=== PATIENT | male | born 1945 | race Caucasian/White ===

== ENCOUNTER 2017-01-15 07:06 | Observation (INO) ==
[2017-01-15] MEDS ORDERED: MORPHINE 2 MG/1 ML SYRINGE IV PRN (07:25)
[2017-01-15] MEDS ORDERED: ONDANSETRON 4 MG/2 ML VIAL IV PRN (07:25)
[2017-01-15] MEDS ORDERED: ASPIRIN 325 MG TABLET PO STA (07:25)
--- NOTE | 2017-01-15 07:28 | EKG Report ---
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
[2017-01-15 07:36] LABS: Basophils % 0.5 % (0.0-0.8); Eosinophils # 0.2 10*3/uL (0.0-0.87); Eosinophils % 2.6 % (0.00-10.9); Hematocrit 44.7 VOL% (42.0-52.0); Hemoglobin 15.1 GM/DL (14.0-18.0); Immature Granulocytes % 0.3 %; Immature Granulocytes Absolute 0.02 #; Lymphocytes # 1.3 10*3/uL (1.4-4.0); Lymphocytes % 20.3 % (21.2-54.2); Mean Corpuscular HGB Conc 33.8 GM/DL (32-36); Mean Corpuscular Hemoglobin 30 PG (27-34); Mean Corpuscular Volume 90.1 FL (87-102); Mean Platelet Volume 9.3 FL (9.6-12.0); Monocytes # 0.5 10*3/uL (0.11-0.8); Monocytes % 7.6 % (1.7-12.7); Neutrophils # 4.5 10*3/uL (1.4-7.4); Neutrophils % 68.7 % (38.7-73.9); Platelet Count 239 T/CUMM (130-400); Red Blood Count 4.96 MC/CUMM (3.8-5.5); White Blood Count 6.6 T/CUMM (4-12)
[2017-01-15] MEDS ORDERED: ENOXAPARIN 80 MG/0.8 ML SYRINGE SUBCUT STA (07:44)
[2017-01-15 07:45] LABS: PT Patient Result 10.6 SECS; Partial Thromboplastin Time 27.9 SECS (0-40)
[2017-01-15] MEDS ORDERED: ONDANSETRON 4 MG/2 ML VIAL ONE (07:45)
[2017-01-15] MEDS ORDERED: NITROGLYCERIN 2% OINT 1 INCH/GM PACK TOP STA (07:45)
[2017-01-15] MEDS ORDERED: ASPIRIN 325 MG TABLET ONE (07:46)
[2017-01-15] MEDS ORDERED: MORPHINE 2 MG/1 ML SYRINGE ONE (07:46)
--- NOTE | 2017-01-15 07:46 | XRay Report ---
XR chest 2V Indication: Chest pain. Comparison: Chest x-ray 04/05/2015 Technique: PA and lateral chest x-ray was performed. Findings: Heart size, mediastinal contour, and hilar structures demonstrate no significant abnormalities. The lung parenchyma is clear. Bones and soft tissues demonstrate no significant abnormalities. Impression: 1. No active cardiopulmonary disease. 01/15/2017 7:43 AM PROCEDURE INTERPRETED AT [facility] DEPARTMENT OF RADIOLOGY Final Report Signed by: Dr. Jacobo López
[2017-01-15] MEDS ORDERED: NITROGLYCERIN 2% OINT 1 INCH/GM PACK TOP ONE (07:51)
[2017-01-15] MEDS ORDERED: ENOXAPARIN 80 MG/0.8 ML SYRINGE SUBCUT ONE (07:52)
--- NOTE | 2017-01-15 07:55 | Emergency Department Note ---
Marisa Souza Mantricia, am scribing for, and in the presence of, Giancarlo Suarez MD 07:50. Daniela Souza James D, MD, personally performed the services described in this documentation, ascribed by Cipriano Cunningham in my presence, and it is both accurate and complete 754 . Arrival - Arrival Chief Complaint: Chest Pain Stated Complaint: chest pain ED Nursing Triage Note: PT C/O MIDSTERNAL CHEST PAIN THAT RADIATES ACROSS SHOULDER BLADES AND TO LEFT ARM. ONSET X4 DAYS. Mode of Arrival: Ambulatory Limitations: No Limitations Source: Patient, RN Notes Reviewed Time Seen by Provider: 01/15/17 07:25 - History of Present Illness HPI Narrative: Pt is a 71 y/o white male arriving to ED that onset 4 days ago. Pt states that he is experiencing tightness on the left side of his chest that radiates down his arm and along his shoulder blade. He reports that relaxing worsens his chest tightness and does not notice anything that relieves it. Pt has a PMHx of CAd and a PSHx of a angioplasty in April 2016. He confirms slight SOB and nausea but denies V/D. Pt states that he smokes at least 6-7 cigarettes a day. He reports no other complaints to ED. Onset (ago): day(s) Allergies/Adverse Reactions: Allergies Allergy/AdvReac Type Severity Reaction Status Date / Time Sulfa (Sulfonamide AdvReac Headache Verified 01/15/17 07:13 Antibiotics) Home Medications: Home Medications Medication Instructions Recorded Confirmed Type Aspirin [Ecotrin] 81 mg PO DAILY 04/03/15 04/05/15 History Dutasteride [Avodart] 0.5 mg PO QOTHER DAY 04/03/15 04/05/15 History Atorvastatin [Lipitor] 80 mg PO BEDTIME #30 tablet 04/04/15 04/05/15 Rx Esomeprazole Magnesium [Nexium] 40 mg PO AC BREAKFAST #30 04/04/15 04/05/15 Rx capsule. Ticagrelor [Brilinta] 90 mg PO BID #60 tablet 04/04/15 04/05/15 Rx Review of System - Review of System 12 point system: reviewed and no additional remarkable complaints except as stated - Review of System Constitutional: Absent: chills, diaphoresis, fever Eyes: Absent: discharge, pain Head/Ears/Nose/Throat: Absent: earache, epistaxis Respiratory: Absent: cough, respiratory distress, wheezing Cardiovascular: Present: chest pain Gastrointestinal: Absent: abdominal pain, nausea, vomiting Genitourinary male: Absent: urgency, dysuria Musculoskeletal: Present: arm pain, back pain (shoulder blade). Absent: leg pain, neck pain Skin: Absent: rash, lesions Neurological: Absent: headache, weakness Medical,Surgical,& Family Hx - Medical History Cardio: History of: CAD, [place] Endocrine: History of: Dyslipidemia Respiratory: History of: COPD (was told had some emphysema) Genitourinary: History of: Prostate Problems Gastrointestinal: History of: Ulcerative Colitis Other: No history of: Anesthesia Reactions - Surgical History Cardiac Surgeries: Sugical HX of: Cardiac Catheterization (ANGIOPLAST) HEENT Surgeries: Surgical HX of: Tonsilectomy & Adenoidectomy (tonsilectomy at age 5) Abdominal Surgeries: Surgical HX of: Colonoscopy, Hernia Repair (inguinal) - Family History Family History: Denies;: Family Anesthesia Reaction, Family Cancer, Family Diabetes, Family Heart Disease, Family Hypertension, Family Psychiatric Problems, Family Stroke - Social History Smoking Status: Former smoker Frequency of Alcohol Use: None Type of Drug Use: None Exam Vital Signs: Vital Signs Temperature 97.6 F 01/15/17 07:25 Pulse Rate 88 01/15/17 07:25 Respiratory Rate 20 01/15/17 07:25 Blood Pressure 130/75 01/15/17 07:25 O2 Sat by Pulse Oximetry 97 01/15/17 07:21 - General General appearance: alert, in no apparent distress - Head Head exam: Present: atraumatic, normocephalic, normal inspection - Eye Eye exam: Present: normal appearance, PERRL, EOMI - ENT ENT exam: Present: normal exam, normal oropharynx, mucous membranes moist, TM's normal bilaterally, normal external ear exam - Neck Neck exam: Present: normal inspection, full ROM, trachea midline. Absent: tenderness - Chest Chest inspection: Present: normal inspection, symmetric chest wall rise. Absent : tenderness - Respiratory Respiratory exam: Present: normal lung sounds bilaterally - Cardiovascular Cardiovascular exam: Present: regular rate, normal rhythm, normal heart sounds - Abdominal Exam Abdominal exam: Present: soft, normal bowel sounds. Absent: distention, tenderness, guarding, rebound - Extremities Exam Extremities exam: Present: normal inspection, full ROM, normal capillary refill. Absent: tenderness, pedal edema - Back Exam Back exam: Present: normal inspection, full ROM. Absent: tenderness - Neurological Exam Neurological exam: Present: alert, oriented X3, CN II-XII intact, normal gait, reflexes normal - Psychiatric Psychiatric exam: Present: normal affect, normal mood - Skin Skin exam: Present: warm, dry, intact, normal color Course - Consultations Consultation #1: Patient will be seen by Dr. Khoury in the emergency department. Time: 08:38 Results - Labs CBC & BMP: 01/15/17 07:25 01/15/17 07:25 Lab Results: I have reviewed the patients labs Labs: Laboratory Tests 01/15/17 07:25 Troponin I < 0.015 - EKG EKG results: interpreted by ERMD - Impressions EKG: Normal sinus rhythm with rate of 91, nonspecific ST-T wave changes, normal axis. - Diagnostic Findings Procedure: Chest x-ray: image reviewed by me (No cardiomegaly, no pleural effusions, no infiltrates.) Disposition Clinical Impression: Chest pain, Coronary artery disease Case discussed with: patient Disposition: Still a Patient Condition: Guarded
[2017-01-15 08:13] LABS: Bilirubin,Total 0.6 MG/DL (0.2-1.0); Calcium 9.3 MG/DL (8.5-10.1); Osmolality,Calculated 279.4 MOS/KG (273-304); Potassium 4.2 MMOL/L (3.5-5.1); Total Protein 7.9 G/DL (6.4-8.3)
[2017-01-15] MEDS ORDERED: SODIUM CHLORIDE 0.45% 1,000 ML IV SCH (09:00)
[2017-01-15] MEDS ORDERED: DIAZEPAM 5 MG TABLET PO ONE (09:00)
[2017-01-15] MEDS ORDERED: diphenhydrAMINE CAP 25 MG CAPSULE PO ONE (09:00)
--- NOTE | 2017-01-15 09:05 | Cardiology History & Physical ---
Assessment and Plan - Time spent with patient Time spent with patient: Greater than 30 minutes (Exam, film review, chart review documentation and orders and discussion with consulting physician) (1) Chest pain Status: Acute Assessment and plan: This is a subacute chest discomfort that is similar to his previous pain he is very anxious about this has known coronary disease. Is on dual antiplatelet therapy will continue that anticipate left heart catheterization later today by Dr. Isabel. Patient understands willing to proceed he has been n.p.o. since last night. Current Visit: Yes (2) Coronary artery disease Status: Acute Current Visit: Yes Qualifiers: Coronary Disease-Associated Artery/Lesion type: torres martinez artery [place] vs. transplanted heart: torres martinez heart Associated angina: with unspecified angina Qualified Code(s): I25.119 - Atherosclerotic heart disease of torres martinez coronary artery with unspecified angina pectoris (3) Dyslipidemia Status: Acute Current Visit: No (4) Abdominal aortic aneurysm Status: Chronic Current Visit: No Qualifiers: Presence of rupture: without rupture Qualified Code(s): I71.4 - Abdominal aortic aneurysm, without rupture History of Present Illness Chief complaint: Chest pain shoulder pain History of present illness: Mr. Campos is a 71 year old male with history of known coronary artery disease who presents with approximately 5 days duration of chest discomfort and left shoulder discomfort. 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 He is not sure if it is better or worse with exercise or exertion but he states that he has had some diaphoresis and some intermittent nausea. He states the nausea was not bad but it was "like I was going to get nauseated." Patient presented for further evaluation emergency room he has a nondiagnostic EKG with no diagnostic ST segment changes and negative cardiac biomarkers. He has had previous PCI the last approximately 2 years ago. He is followed longitudinally outpatient setting by Dr. Maxx Isabel. I discussed with the patient his benefits options and decision was made to proceed with left heart catheterization because of known coronary artery disease. I reviewed his films from 04/03/2015 he had PCI 100% occluded nondominant right coronary artery. He had diffuse mild to moderate disease in a dominant left system particular the circumflex system but certainly could have progressed. I discussed with the patient he is willing to proceed. Dr. Isabel is in the [facility] this afternoon we will cath this afternoon I discussed with Dr. Isabel. Home Medications Medication Instructions Recorded Confirmed Type Aspirin [Ecotrin] 81 mg PO DAILY 04/03/15 04/05/15 History Dutasteride [Avodart] 0.5 mg PO QOTHER DAY 04/03/15 04/05/15 History Atorvastatin [Lipitor] 80 mg PO BEDTIME #30 tablet 04/04/15 04/05/15 Rx Esomeprazole Magnesium [Nexium] 40 mg PO AC BREAKFAST #30 04/04/15 04/05/15 Rx capsule. Ticagrelor [Brilinta] 90 mg PO BID #60 tablet 04/04/15 04/05/15 Rx Allergies Allergy/AdvReac Type Severity Reaction Status Date / Time Sulfa (Sulfonamide AdvReac Headache Verified 01/15/17 07:13 Antibiotics) - Constitutional Constitutional: Absent: anorexia, chills - EENT Eyes: Absent: loss of vision Nose, mouth and throat: Absent: dysphagia, epistaxis - Cardiovascular Cardiovascular: Present: chest pain at rest, chest pain with activity, dyspnea. Absent: dyspnea on exertion - Respiratory Respiratory: Absent: cough, dyspnea on exertion - Gastrointestinal Gastrointestinal: Absent: abdominal pain, bloating - Genitourinary Genitourinary: Absent: difficulty urinating, hematuria - Musculoskeletal Musculoskeletal: Absent: arthralgias - Neurological Neurological: Absent: disequilibrium, dizziness - Psychiatric Psychiatric: Present: anxiety. Absent: auditory hallucinations, depression - Endocrine Endocrine: Absent: cold intolerance, heat intolerance - Hematologic/Lymphatic Hematologic/Lymphatic: Present: easy bruising. Absent: easy bleeding Medical,Surgical,& Family Hx - Medical History Cardio: History of: CAD (POB a RCA 2014), [place] Endocrine: History of: Dyslipidemia Respiratory: History of: COPD (was told had some emphysema) Genitourinary: History of: Prostate Problems Gastrointestinal: History of: Ulcerative Colitis Other: History of: Miscellaneous Medical Problems (Dyslipidemia) No history of: Anesthesia Reactions - Surgical History Cardiac Surgeries: Sugical HX of: Cardiac Catheterization (ANGIOPLAST) HEENT Surgeries: Surgical HX of: Tonsilectomy & Adenoidectomy (tonsilectomy at age 5) Abdominal Surgeries: Surgical HX of: Colonoscopy, Hernia Repair (inguinal) - Family History Family History: Denies;: Family Anesthesia Reaction, Family Cancer, Family Diabetes, Family Heart Disease, Family Hypertension, Family Psychiatric Problems, Family Stroke - Social History Smoking Status: Former smoker Frequency of Alcohol Use: None Type of Drug Use: None Marital Status: Lives With:: Spouse Functional capacity: independent ambulation Cardiology Physical Exam - Constitutional Vitals: Vital Signs Temp Pulse Resp BP Pulse Ox 97.6 F 88 20 130/75 97 01/15/17 07:25 01/15/17 07:25 01/15/17 07:25 01/15/17 07:25 01/15/17 07:21 Intake and Output 01/14/17 01/15/17 01/15/17 23:59 07:59 15:59 Other: Weight 78.471 kg Patient Weight 01/15/17 23:59 Weight 78.471 kg General appearance: normal weight - Head Head exam: Present: normal inspection - Eye Eye exam: Present: EOMI Pupils: Present: IRINA - ENT ENT exam: Present: normal exam - Neck Neck exam: Present: normal inspection - Respiratory Respiratory exam: Present: clear to auscultation bilaterally - Cardiovascular Cardiovascular exam: Present: regular rate and rhythm - GI/Abdominal GI/Abdominal exam: Present: normal bowel sounds - Extremities Exam Extremities exam: Present: normal inspection - Back Exam Back exam: Present: normal inspection - Neurological Exam Neurological exam: Present: alert, oriented X3 - Psychiatric Psychiatric exam: Present: normal affect - Skin Skin exam: Present: normal color Result/EKG - Labs CBC & BMP: 01/15/17 07:25 01/15/17 07:25 Labs: Laboratory Results - last 24 hr 01/15/17 01/15/17 01/15/17 07:25 07:25 07:25 WBC 6.6 RBC 4.96 Hgb 15.1 Hct 44.7 MCV 90.1 MCH 30 MCHC 33.8 RDW 14.0 Plt Count 239 MPV 9.3 L Neut % (Auto) 68.7 Lymph % (Auto) 20.3 L [place] % (Auto) 7.6 Eos % (Auto) 2.6 Baso % (Auto) 0.5 Neut # (Auto) 4.5 Lymph # (Auto) 1.3 L [place] # (Auto) 0.5 Eos # (Auto) 0.2 Baso # (Auto) 0.0 Immature Gran % 0.3 Nucleated RBC % 0.0 Immature Gran # 0.02 Nucleated RBCs # 0.00 INR 1.0 PT Patient/Control Mix 10.6 Circ Anticoag PTT 27.9 Sodium 140 Potassium 4.2 Chloride 105 Carbon Dioxide 27 Anion Gap 12.2 BUN 14 Creatinine 1.00 GFR Calculation 86 BUN/Creatinine Ratio 14.00 Glucose 107 H Calculated Osmolality 279.4 Calcium 9.3 Total Bilirubin 0.60 AST 27 ALT 29 Alkaline Phosphatase 107 Troponin I Total Protein 7.9 Albumin 4.0 Globulin 3.9 H Albumin/Globulin Ratio 1.0 L 01/15/17 07:25 WBC RBC Hgb Hct MCV MCH MCHC RDW Plt Count MPV Neut % (Auto) Lymph % (Auto) [place] % (Auto) Eos % (Auto) Baso % (Auto) Neut # (Auto) Lymph # (Auto) [place] # (Auto) Eos # (Auto) Baso # (Auto) Immature Gran % Nucleated RBC % Immature Gran # Nucleated RBCs # INR PT Patient/Control Mix Circ Anticoag PTT Sodium Potassium Chloride Carbon Dioxide Anion Gap BUN Creatinine GFR Calculation BUN/Creatinine Ratio Glucose Calculated Osmolality Calcium Total Bilirubin AST ALT Alkaline Phosphatase Troponin I < 0.015 Total Protein Albumin Globulin Albumin/Globulin Ratio - EKG EKG results: interpreted by me (Normal sinus rhythm with incomplete right bundle branch block otherwise normal)
[2017-01-15] MEDS ORDERED: diphenhydrAMINE CAP 50 MG CAPSULE PO SCH (11:00)
[2017-01-15] MEDS ORDERED: DIAZEPAM 5 MG TABLET PO SCH (11:00)
--- NOTE | 2017-01-15 12:30 | EKG Report ---
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
--- NOTE | 2017-01-15 13:36 | EKG Report ---
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
[2017-01-15] MEDS ORDERED: LIDOCAINE 1%/EPI INJ 20 ML VIAL ONE (14:26)
[2017-01-15] MEDS ORDERED: HEPARIN/NACL 0.9% 2 UNITS/ML 1,000 ML IV ONE (14:26)
[2017-01-15] MEDS ORDERED: fentaNYL 100 MCG/2 ML VIAL ONE (14:40)
[2017-01-15] MEDS ORDERED: MIDAZOLAM 2 MG/2 ML VIAL ONE (14:40)
[2017-01-15] MEDS ORDERED: VERAPAMIL 5 MG/2 ML VIAL ONE (14:45)
[2017-01-15] MEDS ORDERED: NITROGLYCERIN DRIP 50 MG/250 ML BOTTLE IV ONE (14:45)
--- NOTE | 2017-01-15 15:03 | History and Physical Update ---
Sedation H&P Update - History and Physical H&P was reviewed, the patient examined and there: are no changes in the patients condition since last H&P was completed. - Sedation Plan for Sedation: moderate Patient Consent: Procedure disscussed with patient and patinet has consented., Risks and benefits were discussed with patient,including infection,, bleeding, injury to surrounding structures, seizure, temporary nerve, Patient understands and accepts potential risks/benefits and agrees to, proceed. ASA Class: III Airway Assessment: Class III: Soft palate, base of uvula visible
--- NOTE | 2017-01-15 15:39 | Cardiac Catheterization ---
Date of Procedure:: 01/15/17 Pre-op Diagnosis: Known CAD with precordial pain. History of PCI of the RCA done several years ago. Post-op diagnosis: same Procedure: Procedures performed: 1: Left heart catheterization 2: Coronary arteriography 3: Left ventriculography After obtaining informed consent the patient was brought to the cardiac catheterization lab where the right wrist was prepped and draped in the usual sterile fashion. Using intravenous sedation and local anesthesia a needle was inserted into the right radial artery and a guidewire was positioned without difficulty. A 5 Micronesian sheath was advanced over the guidewire and positioned in the right radial artery without difficulty. Patient was given verapamil and nitroglycerin intra-arterial as a vasodilator. At this point a Toni catheter was advanced over a guidewire under fluoroscopic control to the ascending aorta where the left main coronary ostium was engaged and multiple angiograms were obtained in multiple angulations. Next this catheter was manipulated into the right coronary artery and multiple angiograms of the right coronary artery was undertaken in multiple views. After adequate angiograms the right coronary were obtained this catheter was withdrawn and a pigtail ventriculographic catheter was advanced over guidewire under fluoroscopic control the ascending aorta where was passed across the aortic valve and intraventricular hemodynamics were measured. In the MCBRIDE projection, a ventriculogram was obtained injecting 24 cc of contrast at 12 cc/s. After adequate ventriculography was obtained this catheter was pulled back from the ventricle to the aorta under hemodynamic monitoring and removed. Patient then underwent T R band application 2 mm above the radial skin entry site. 15 mL of air was in injected into the hemo band and the radial sheath was pulled. Air was removed from the TR band and 1 mL intervals until a arterial flash was noted. Additional 2 mL of air were added back to the TR band at this point. The patient tolerated procedure well. His right hand was warm with good capillary fill noted. Patient was transferred to the holding area having suffered no significant immediate complications. Hemodynamics: Please see accompanying data sheet Coronary angiography: Left coronary artery: Left main coronary artery is well-developed and free of significant obstructing lesions. The circumflex coronary artery is a large dominant vessel that possesses no significant lesions throughout its course. The branches of the circumflex likewise are free of significant obstructing lesions. The left anterior descending coronary artery is a very large vessel that extends to the apex of the ventricle. He has some minor diffuse irregularities throughout its mid portion measuring probably 20-30% maximal luminal diameter narrowing. Right coronary artery: Right coronary arteries a small non-dominant vessel that possesses no significant lesions throughout its course. The branches of the right coronary artery are likewise free of significant obstructing lesions. Left ventriculography: After injection of contrast in the left ventricle is noted be of normal size with normal contractility. Mitral and aortic structures appear normal by ventriculography. Conclusions: 1: Minor luminal irregularities of the proximal LAD for continued risk factor modification medical management. 2: Prior PCI site of the nondominant right appears to be widely patent 3: Normal left ventricular systolic function and ejection fraction in the 55% range 4: Normal end-diastolic pressures at rest. Discussion and recommendations: Patient presents with left shoulder and subscapular pain which given the current coronary angiography is likely related to musculoskeletal pain. He may benefit from some pain medications and muscle relaxers. We will continue risk factor modification and continue medical therapy. Findings have been reviewed with the patient and with his family. Surgeon / Physician: Hans Isabel - Medications / Follow-up
--- NOTE | 2017-01-15 16:11 | Discharge Summary ---
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 Isabel Mr. Campos is a 71 year old male with a known history of coronary artery disease who presented today with approximately 5 days duration of chest discomfort and left shoulder discomfort. He had a nondiagnostic EKG with no diagnostic ST segment changes and negative cardiac biomarkers. He has had previous PCI the last approximately 2 years ago. It was elected to proceed with left heart catheterization today due to known coronary artery disease. He underwent left heart catheterization by Dr. Isabel this afternoon and was found to have minor luminal irregularities of the proximal LAd for continued risk factor modification and medical management. He was found to have an EF of 55%. His symptoms may be related to musculoskeletal pain. He may benefit form some pain medications and muscle relaxers. He will be given a hand written prescription for Ultram at discharge. His right wrist is without bleeding, hematoma, or bruit. Radial pulse is 2+. Dressing dry and intact. He has been in sinus rhythm with well controlled rate. Blood pressure has been well controlled. We will continue his home medications and have him follow up with Dr. Isabel in 2 weeks. His TR band will come off at 1800. If he meets discharge criteria, he will be discharged this evening. - Time spent with patient Time with patient DS: Less than 30 minutes Diagnosis - Discharge Diagnosis (1) Chest pain Status: Acute (2) Coronary artery disease Status: Chronic (3) Dyslipidemia Status: Chronic (4) Abdominal aortic aneurysm Status: Chronic Specialty Discharge - Follow Up or Referrals Follow up with: Hans Isabel MD [Physician] - 2 Weeks (Follow up with Dr. Isabel in 2 weeks. ) Discharge Plan - Discharge Data Disposition: Disch To Home/Self Care Condition at Discharge: Stable Discharge Diet: heart healthy Activity: no lifting (over 5 pounds x5 days) Hygiene: may shower (Do not submerge cath site beneath water. ) Weight Bearing at Discharge: full weight bearing Driving: not for (2 days) Contact your physician if you experience:: fever over 101, Difficulty voiding, Redness or swelling, Nausea/Vomiting, Shortness of breath, Bleeding, pain uncontrolled by pain medications - Discharge Medications Continue Aspirin [Ecotrin] 81 mg PO QPM Finasteride 5 mg PO QAM Atorvastatin [Lipitor] 20 mg PO QOTHER DAY Ibuprofen 800 mg PO Q6H PRN PRN Reason: hip pain - Follow Up or Referral Follow Up: Hans Isabel MD [Physician] - 2 Weeks (Follow up with Dr. Isabel in 2 weeks. ) - Forms/Instructions Exam - Constitutional Vitals: Period Temp Pulse Resp BP Sys/Díaz Pulse Ox Last 24 Hr 96.7 F-97.9 F 59-103 16-20 94-143/58-90 93-99 Exam: General: Present: Appears Well, No Apparent Distress. Pleasant and cooperative. Appears comfortable. HEENT: Present: PERRL, Normocephaly, atraumatic. Mucus Membranes Moist. No jaundice noted. Conjunctiva moist and clear, sclerae anicteric Neck: Present: Supple Neck, Midline Trachea, No Masses, No Bruit, No tenderness Cardiac: Present: Regular Rate and Rhythm, No Murmur Lungs: Present: Clear to auscultation bilaterally, no wheeze, rhonchi, rales. Neuro: Present: Awake, alert, and oriented x3. Moves all extremities well without hemiparesis or paralysis. Grossly Intact. Absent: Resting Tremor, Essential Tremor Abdomen: Present: Soft, Active Bowel Sounds, No Masses, Non-Tender, nondistended. No abdominal bruit or thrill noted. Skin: Present: Clear. Absent: Rash, No skin breakdown. Back: Normal inspection, no vertebral tenderness. Musculoskeletal: Present: No Fluid Collection, No Pain, Normal Range of Motion Extremities: Present: Normal Gait, No Clubbing, No Cyanosis, Upper Extr. Pulses 2+, Lower Extr. Pulses 2+, No edema. Capillary refill less than 3 seconds. Right radial cath site: No bleeding, hematoma, or bruit. Right radial pulse 2+. Discharge Results Procedures and tests throughout hospitalization: Pending Orders 01/15/17 14:42 CL heart Routine 01/16/17 04:00 BMP w/ Mg [Basic Metabolic Panel w/Mg] IN AM Comp Blood Count Auto Diff IN AM Left heart catheterization 01/15/17: Coronary angiography: Left coronary artery: Left main coronary artery is well-developed and free of significant obstructing lesions. The circumflex coronary artery is a large dominant vessel that possesses no significant lesions throughout its course. The branches of the circumflex likewise are free of significant obstructing lesions. The left anterior descending coronary artery is a very large vessel that extends to the apex of the ventricle. He has some minor diffuse irregularities throughout its mid portion measuring probably 20-30% maximal luminal diameter narrowing. Right coronary artery: Right coronary arteries a small non-dominant vessel that possesses no significant lesions throughout its course. The branches of the right coronary artery are likewise free of significant obstructing lesions. Left ventriculography: After injection of contrast in the left ventricle is noted be of normal size with normal contractility. Mitral and aortic structures appear normal by ventriculography. Conclusions: 1: Minor luminal irregularities of the proximal LAD for continued risk factor modification medical management. 2: Prior PCI site of the nondominant right appears to be widely patent 3: Normal left ventricular systolic function and ejection fraction in the 55% range 4: Normal end-diastolic pressures at rest. Labs on day of discharge: Labs from last 24 hours 01/15/17 01/15/17 01/15/17 13:10 10:29 07:25 WBC RBC Hgb Hct MCV MCH MCHC RDW Plt Count MPV Neut % (Auto) Lymph % (Auto) Parmer % (Auto) Eos % (Auto) Baso % (Auto) Neut # (Auto) Lymph # (Auto) Parmer # (Auto) Eos # (Auto) Baso # (Auto) Immature Gran % Nucleated RBC % Immature Gran # Nucleated RBCs # INR PT Patient/Control Mix Circ Anticoag PTT Sodium Potassium Chloride Carbon Dioxide Anion Gap BUN Creatinine GFR Calculation BUN/Creatinine Ratio Glucose Calculated Osmolality Calcium Total Bilirubin AST ALT Alkaline Phosphatase Troponin I < 0.015 < 0.015 < 0.015 Total Protein Albumin Globulin Albumin/Globulin Ratio 01/15/17 01/15/17 01/15/17 07:25 07:25 07:25 WBC 6.6 RBC 4.96 Hgb 15.1 Hct 44.7 MCV 90.1 MCH 30 MCHC 33.8 RDW 14.0 Plt Count 239 MPV 9.3 L Neut % (Auto) 68.7 Lymph % (Auto) 20.3 L Parmer % (Auto) 7.6 Eos % (Auto) 2.6 Baso % (Auto) 0.5 Neut # (Auto) 4.5 Lymph # (Auto) 1.3 L Parmer # (Auto) 0.5 Eos # (Auto) 0.2 Baso # (Auto) 0.0 Immature Gran % 0.3 Nucleated RBC % 0.0 Immature Gran # 0.02 Nucleated RBCs # 0.00 INR 1.0 PT Patient/Control Mix 10.6 Circ Anticoag PTT 27.9 Sodium 140 Potassium 4.2 Chloride 105 Carbon Dioxide 27 Anion Gap 12.2 BUN 14 Creatinine 1.00 GFR Calculation 86 BUN/Creatinine Ratio 14.00 Glucose 107 H Calculated Osmolality 279.4 Calcium 9.3 Total Bilirubin 0.60 AST 27 ALT 29 Alkaline Phosphatase 107 Troponin I Total Protein 7.9 Albumin 4.0 Globulin 3.9 H Albumin/Globulin Ratio 1.0 L DS: Provider Date of admission: 01/15/17 09:00 Primary care physician: Asha Praker M.D. Attending physician on admission: Loni Khoury DO Consults: 01/15/17 15:43 Consult to Cardiac Rehabilitation [CONS] Routine Reason for Cardiac Rehabilitation: Risk Factor Modification Discharging clinician: SALAZAR Torres Expected date of discharge: 01/15/17
[2017-01-15 20:23] VITALS: BP 98/55
== END 2017-01-15 20:15 | disposition home or self-care (01) ==
LOC: N.EDINP 07:06 → N.ED 07:06 → N.TELES 09:58
PROVIDERS: ADMIT Internal Medicine Cardiovascular Disease; ATTEND Internal Medicine Cardiovascular Disease
PROC: CLCCHCL (ICD-10-PCS; 2017-01-15 16:15)

== ENCOUNTER 2018-06-08 05:56 | Inpatient (IN) ==
[2018-06-02 10:20] LABS: Basophils % 0.4 % (0.0-0.8); Eosinophils # 0.2 10*3/uL (0.0-0.87); Eosinophils % 2.2 % (0.00-10.9); Hemoglobin 14.6 GM/DL (14.0-18.0); Immature Granulocytes % 0.3 %; Immature Granulocytes Absolute 0.02 #; Lymphocytes # 1.6 10*3/uL (1.4-4.0); Lymphocytes % 24.1 % (21.2-54.2); Mean Corpuscular HGB Conc 33.2 GM/DL (32-36); Mean Corpuscular Hemoglobin 31 PG (27-34); Mean Corpuscular Volume 93.4 FL (87-102); Mean Platelet Volume 9.4 FL (9.6-12.0); Monocytes # 0.5 10*3/uL (0.11-0.8); Monocytes % 7.4 % (1.7-12.7); Neutrophils # 4.4 10*3/uL (1.4-7.4); Neutrophils % 65.6 % (38.7-73.9); Platelet Count 235 T/CUMM (130-400); Red Blood Count 4.71 MC/CUMM (3.8-5.5); Red Cell Distribution Width 13.7 % (9.3-17.3); White Blood Count 6.8 T/CUMM (4-12)
[2018-06-02 10:22] LABS: PT Patient Result 10.1 SECS
[2018-06-02 10:34] LABS: Bilirubin,Total 0.5 MG/DL (0.2-1.0); Calcium 9.1 MG/DL (8.5-10.1); Osmolality,Calculated 274.7 MOS/KG (273-304); Potassium 4.6 MMOL/L (3.5-5.1)
[2018-06-08] MEDS ORDERED: ceFAZolin 1,000 MG in SYRINGE 1 EACH IV ONE (06:00)
[2018-06-08] MEDS ORDERED: LIDOCAINE 2% TOP JELLY 20 ML VIAL INTRAURETH ONE ×2 (06:19→08:35)
[2018-06-08] MEDS ORDERED: THROMBIN TOPICAL (RECOMBINANT) 5,000 UNIT VIAL TOP ONE (06:19)
[2018-06-08] MEDS ORDERED: HEPARIN 5,000 UNIT/1 ML VIAL ONE (06:19)
[2018-06-08] MEDS ORDERED: LIDOCAINE 1% 20 ML VIAL ONE (06:19)
[2018-06-08] MEDS ORDERED: VANCOMYCIN 500 MG VIAL ONE (06:19)
[2018-06-08] MEDS ORDERED: TISSUE ADHESIVE 1 EACH APPLICATOR TOP ONE (06:19)
[2018-06-08] MEDS: LACTATED RINGERS 1,000 ML IV SCH ×5 (06:35→23:39)
[2018-06-08] MEDS ORDERED: ceFAZolin 1,000 MG VIAL ONE ×2 (06:44→08:51)
[2018-06-08] MEDS ORDERED: HEPARIN/NACL 0.9% 2 UNITS/ML 3,000 ML IV ONE (07:23)
[2018-06-08] MEDS ORDERED: IBUPROFEN 800 MG TABLET PO PRN (11:24)
[2018-06-08] MEDS ORDERED: ONDANSETRON 4 MG/2 ML VIAL IV PRN (11:25)
[2018-06-08] MEDS ORDERED: HYDROmorphone 2 MG/1 ML VIAL IV PRN (11:25)
[2018-06-08] MEDS ORDERED: fentaNYL 100 MCG/2 ML VIAL ONE (11:57)
[2018-06-08] MEDS ORDERED: MIDAZOLAM 2 MG/2 ML VIAL ONE (11:57)
[2018-06-08] MEDS ORDERED: PROPOFOL 200 MG/20 ML VIAL IV ONE (11:57)
[2018-06-08] MEDS ORDERED: SEVOFLURANE 1 UNIT/15 MINUTE INH ONE (11:57)
[2018-06-08] MEDS ORDERED: PHENYLEPHRINE DRIP 20 MG/250 ML PREMIX IV ONE (11:57)
[2018-06-08] MEDS ORDERED: GLYCOPYRROLATE 0.4 MG/2 ML VIAL ONE (11:58)
[2018-06-08] MEDS ORDERED: NEOSTIGMINE 10 MG/10 ML VIAL ONE (11:58)
[2018-06-08] MEDS ORDERED: PHENYLEPHRINE 1 MG/10 ML SYRINGE IV ONE (11:58)
[2018-06-08] MEDS ORDERED: ONDANSETRON 4 MG/2 ML VIAL ONE (11:58)
[2018-06-08] MEDS ORDERED: DEXAMETHASONE 10 MG/1 ML VIAL ONE (11:58)
[2018-06-08] MEDS ORDERED: SODIUM CHLORIDE 0.9% 1,000 ML IV ONE (11:58)
[2018-06-08] MEDS ORDERED: ESMOLOL 100 MG/10 ML VIAL IV ONE (11:58)
[2018-06-08] MEDS ORDERED: ROCURONIUM 100 MG/10 ML VIAL IV ONE (11:58)
[2018-06-08] MEDS ORDERED: INFLUENZA VIRUS VACCINE 0.5 ML SYRINGE IM ONE (13:00)
[2018-06-08] MEDS ORDERED: ASPIRIN EC 81 MG TABLET PO SCH (19:00)
[2018-06-09 04:58] LABS: Hematocrit 31.9 VOL% (42.0-52.0); Hemoglobin 10.7 GM/DL (14.0-18.0)
[2018-06-09 05:12] LABS: Calcium 7.9 MG/DL (8.5-10.1); Osmolality,Calculated 277.7 MOS/KG (273-304); Potassium 4.2 MMOL/L (3.5-5.1)
[2018-06-09] MEDS: LACTATED RINGERS 1,000 ML IV SCH ×2 (05:30→13:43)
[2018-06-09] MEDS ORDERED: FINASTERIDE 5 MG TABLET PO SCH (09:00)
[2018-06-09] MEDS ORDERED: PANTOPRAZOLE 40 MG TABLET PO SCH (09:00)
[2018-06-09] MEDS ORDERED: MULTIVITAMIN (CENTRUM) TABLET PO SCH (09:00)
[2018-06-09] MEDS ORDERED: TAMSULOSIN 0.4 MG CAPSULE PO SCH (09:00)
[2018-06-09 12:20] VITALS: BP 100/59
[2018-06-10] MEDS ORDERED: ATORVASTATIN 20 MG TABLET PO SCH (09:00)
== END 2018-06-09 13:15 | disposition home or self-care (01) | DRG 269 ==
LOC: N.SDSINP 05:56 → N.3E 12:53
PROVIDERS: ADMIT Surgery; ATTEND Surgery
PROC: IRERAAA (2018-06-08 09:00)

== ENCOUNTER 2018-07-20 12:28 | Inpatient (IN) ==
[2018-07-20 13:18] LABS: Basophils % 0.5 % (0.0-0.8); Eosinophils # 0.1 10*3/uL (0.0-0.87); Eosinophils % 2.1 % (0.00-10.9); Hematocrit 38.9 VOL% (42.0-52.0); Hemoglobin 12.9 GM/DL (14.0-18.0); Immature Granulocytes % 0.5 %; Immature Granulocytes Absolute 0.03 #; Lymphocytes # 1.4 10*3/uL (1.4-4.0); Lymphocytes % 21.2 % (21.2-54.2); Mean Corpuscular HGB Conc 33.2 GM/DL (32-36); Mean Corpuscular Hemoglobin 30 PG (27-34); Mean Corpuscular Volume 90.3 FL (87-102); Mean Platelet Volume 8.7 FL (9.6-12.0); Monocytes # 0.5 10*3/uL (0.11-0.8); Monocytes % 7.4 % (1.7-12.7); Neutrophils # 4.6 10*3/uL (1.4-7.4); Neutrophils % 68.3 % (38.7-73.9); Platelet Count 229 T/CUMM (130-400); Red Blood Count 4.31 MC/CUMM (3.8-5.5); Red Cell Distribution Width 13.4 % (9.3-17.3); White Blood Count 6.7 T/CUMM (4-12)
[2018-07-20 13:36] LABS: PT Patient Result 10.5 SECS
[2018-07-20 13:39] LABS: Alanine Aminotransferase 25 U/L (16-61); Albumin 3.7 G/DL (3.4-5.0); Alkaline Phosphatase 99 U/L (45-117); Aspartate Amino Transferase 21 U/L (0-37); Blood Urea Nitrogen 14 MG/DL (7-18); Glucose 96 MG/DL (74-106); Osmolality,Calculated 275.7 MOS/KG (273-304); Potassium 3.8 MMOL/L (3.5-5.1); Sodium 138 MMOL/L (136-145); Total Protein 7.5 G/DL (6.4-8.3)
[2018-07-20] MEDS ORDERED: HEPARIN/NACL 0.9% 2 UNITS/ML 2,000 ML IV ONE (14:29)
[2018-07-20 14:49] LABS: Apearance,Urine CLEAR (Clear); Bilirubin,Urine Negative (Negative); Blood, Urine Negative (Negative); Glucose,Urine (UA) Negative (Negative); Ketones,Urine Negative (Negative); Mucus,Urine Occasional /LPF (Occasional); Nitrite,Urine Negative (Negative); Protein,Urine Negative; RBC,Urine 1 /HPF (0-4); Squamous Epithelial Cell,Urine Occasional /HPF (0-10); Urine Color Yellow (Yellow); Urine Specific Gravity 1.017 (1.001-1.035); Urine Urobilinogen < 2.0 EU/DL (0.2-1.0); WBC,Urine 1 /HPF (0-6)
[2018-07-20] MEDS ORDERED: fentaNYL 100 MCG/2 ML VIAL IV ONE (14:49)
[2018-07-20] MEDS ORDERED: MIDAZOLAM 2 MG/2 ML VIAL IV ONE (14:49)
[2018-07-20] MEDS ORDERED: ceFAZolin 1,000 MG in SYRINGE 1 EACH IV ONE (14:49)
[2018-07-20] MEDS ORDERED: HEPARIN DRIP 25,000 UNITS/500 ML PREMIX IV SCH (15:00)
[2018-07-20] MEDS ORDERED: HEPARIN DRIP 25,000 UNITS/500 ML PREMIX IV ONE (15:09)
[2018-07-20] MEDS: SODIUM CHLORIDE 0.45% 1,000 ML IV SCH ×3 (15:15→20:19)
[2018-07-20] MEDS ORDERED: DIAZEPAM 5 MG TABLET ONE (15:21)
[2018-07-20] MEDS ORDERED: DIAZEPAM 5 MG TABLET PO ONE (15:30)
[2018-07-20] MEDS: ALTEPLASE 12 MG in SODIUM CHLORIDE 0.9% 240 ML IV SCH (16:13)
[2018-07-20] MEDS ORDERED: ONDANSETRON 4 MG/2 ML VIAL IV PRN (16:30)
[2018-07-20] MEDS ORDERED: ACETAMINOPHEN 325 MG TABLET PO PRN (16:30)
[2018-07-20 18:03] LABS: Barbiturates Screen,Urine Negative (Negative); Benzodiazepines Screen,Urine Negative (Negative); Cannabinoid Screen,Urine Negative (Negative); Opiate Screen,Urine Negative (Negative); Phencyclidine Screen,Urine Negative (Negative)
[2018-07-20] MEDS ORDERED: Varenicline Tartrate [Chantix Starter Month Pack] PO SCH (21:00)
[2018-07-20] MEDS: PANTOPRAZOLE 40 MG TABLET PO SCH (21:06)
[2018-07-20] MEDS: FINASTERIDE 5 MG TABLET PO SCH (21:06)
[2018-07-20] MEDS: HYDROmorphone 2 MG/1 ML VIAL IV PRN (22:41)
[2018-07-21] MEDS: HYDROmorphone 2 MG/1 ML VIAL IV PRN ×5 (00:45→22:20)
[2018-07-21 03:29] LABS: INR 1.2; PT Patient Result 12.7 SECS
[2018-07-21 03:36] LABS: Partial Thromboplastin Time 63.6 SECS (0-40)
[2018-07-21] MEDS: ALTEPLASE 12 MG in SODIUM CHLORIDE 0.9% 240 ML IV SCH (04:15)
[2018-07-21] MEDS: SODIUM CHLORIDE 0.45% 1,000 ML IV SCH ×3 (04:16→16:47)
[2018-07-21] MEDS ORDERED: HEPARIN/NACL 0.9% 2 UNITS/ML 2,000 ML IV ONE (07:28)
[2018-07-21] MEDS ORDERED: HYDROmorphone 2 MG/1 ML VIAL ONE (08:07)
[2018-07-21] MEDS ORDERED: PANTOPRAZOLE 40 MG TABLET PO SCH (09:00)
[2018-07-21] MEDS ORDERED: HEPARIN 5,000 UNIT/1 ML VIAL ONE (09:10)
[2018-07-21] MEDS ORDERED: HEPARIN/NACL 0.9% 2 UNITS/ML 1,000 ML IV ONE (09:14)
[2018-07-21] MEDS ORDERED: HEPARIN 1,000 UNIT/1 ML VIAL ONE (09:24)
[2018-07-21] MEDS ORDERED: HEPARIN DRIP 25,000 UNITS/500 ML PREMIX IV SCH (11:30)
[2018-07-21] MEDS: PANTOPRAZOLE 40 MG TABLET PO SCH ×2 (11:36→20:02)
[2018-07-21] MEDS: FINASTERIDE 5 MG TABLET PO SCH (20:01)
[2018-07-22] MEDS: HYDROmorphone 2 MG/1 ML VIAL IV PRN (01:01)
[2018-07-22 06:03] VITALS: BP 131/69
[2018-07-22] MEDS ORDERED: IBUPROFEN 800 MG TABLET PO PRN (07:44)
[2018-07-22] MEDS ORDERED: CLOPIDOGREL 75 MG TABLET PO SCH (09:00)
[2018-07-22] MEDS ORDERED: MULTIVITAMIN (CENTRUM) TABLET PO SCH (09:00)
[2018-07-22] MEDS ORDERED: ATORVASTATIN 20 MG TABLET PO SCH (09:00)
[2018-07-22] MEDS ORDERED: ASPIRIN EC 81 MG TABLET PO SCH ×2 (09:00→19:00)
[2018-07-22] MEDS: PANTOPRAZOLE 40 MG TABLET PO SCH (09:18)
== END 2018-07-22 11:10 | disposition home or self-care (01) | DRG 271 ==
LOC: N.ED 12:28 → N.EDINP 14:40 → N.ICU 15:00
PROVIDERS: ADMIT Surgery; ATTEND Surgery